=== PATIENT | male | born 1985 | race Caucasian/White ===

== ENCOUNTER 2021-01-09 15:34 | Emergency (ER) | payer BC ==
[~2021-01-09] VITALS: Ht 180.3 cm; Wt 93.0 kg
[~2021-01-09 15:34] MED LIST: CRUTCH3 USE
== END 2021-01-09 16:43 | disposition home or self-care (01) ==
LOC: ER 15:34
DX: U07.1 COVID-19 (principal)
CPT/HCPCS: 99282